=== PATIENT | female | born 1955 | race Asian ===

== ENCOUNTER 2018-06-21 23:12 | Emergency (ER) | payer OTHER | END 2018-06-22 01:13 | disposition other institution (70) | LOC: ED 23:12 | DX: Z02.89 Encounter for other administrative examinations (principal) ==

== ENCOUNTER 2018-06-21 23:12 | Emergency (ER) | payer OTHER ==
[~2018-06-21] VITALS: Ht 167.6 cm; Wt 108.9 kg
[2018-06-21 23:19] VITALS: Ht 167.6 cm; Wt 108.9 kg
[2018-06-22 00:49] VITALS: BP 140/60
== END 2018-06-22 01:13 | disposition other institution (70) ==
LOC: ED 23:12
DX: F41.9 Anxiety disorder, unspecified (principal); I10 Essential (primary) hypertension; E11.9 Type 2 diabetes mellitus without complications; E78.00 Pure hypercholesterolemia, unspecified; Z90.12 Acquired absence of left breast and nipple
CPT/HCPCS: 82962